=== PATIENT | female | born 1950 | race Caucasian/White ===

== ENCOUNTER 2018-11-07 10:48 | Outpatient (CLI) | payer OTHER | END 2018-11-07 10:58 | disposition home or self-care (01) | LOC: MAMO-SONO 10:48 | DX: Z12.31 Encounter for screening mammogram for malignant neoplasm of breast (principal); Z87.898 Personal history of other specified conditions; N64.89 Other specified disorders of breast ==

== ENCOUNTER 2019-05-05 08:46 | Outpatient (CLI) | payer OTHER | END 2019-05-05 08:52 | disposition home or self-care (01) | LOC: RAD 08:46 | DX: M54.2 Cervicalgia (principal) ==

== ENCOUNTER 2020-10-11 10:39 | Outpatient (CLI) | payer OTHER | END 2020-10-11 10:46 | disposition home or self-care (01) | LOC: MAMO-SONO 10:39 | PROVIDERS: ATTEND Internal Medicine | DX: Z12.31 Encounter for screening mammogram for malignant neoplasm of breast (principal); N64.89 Other specified disorders of breast; M54.5 Low back pain; I10 Essential (primary) hypertension; Z01.810 Encounter for preprocedural cardiovascular examination; E03.8 Other specified hypothyroidism; I83.813 Varicose veins of bilateral lower extremities with pain ==

== ENCOUNTER 2020-10-26 13:30 | Outpatient (CLI) | payer OTHER | END 2020-10-26 13:43 | disposition home or self-care (01) | LOC: NUCLEAR 13:30 | PROVIDERS: ATTEND Internal Medicine | DX: M81.0 Age-related osteoporosis without current pathological fracture (principal); I83.813 Varicose veins of bilateral lower extremities with pain; E03.8 Other specified hypothyroidism; Z01.810 Encounter for preprocedural cardiovascular examination ==

== ENCOUNTER 2021-04-28 10:31 | Outpatient (CLI) | payer OTHER | END 2021-04-28 10:43 | disposition home or self-care (01) | LOC: RAD 10:31 | PROVIDERS: ATTEND Internal Medicine | DX: M16.11 Unilateral primary osteoarthritis, right hip (principal); I10 Essential (primary) hypertension; M54.5 Low back pain; E03.9 Hypothyroidism, unspecified; I83.813 Varicose veins of bilateral lower extremities with pain ==

== ENCOUNTER 2021-10-18 14:31 | Outpatient (CLI) | payer OTHER | END 2021-10-18 14:35 | disposition home or self-care (01) | LOC: MAMO-SONO 14:31 | PROVIDERS: ATTEND Internal Medicine | DX: N64.59 Other signs and symptoms in breast (principal); Z12.31 Encounter for screening mammogram for malignant neoplasm of breast; I10 Essential (primary) hypertension; M54.59 Other low back pain; E03.8 Other specified hypothyroidism; I83.813 Varicose veins of bilateral lower extremities with pain; I87.2 Venous insufficiency (chronic) (peripheral); H40.019 Open angle with borderline findings, low risk, unspecified eye; H40.10X1 Unspecified open-angle glaucoma, mild stage; Z12.11 Encounter for screening for malignant neoplasm of colon; Z01.01 Encounter for examination of eyes and vision with abnormal findings ==

== ENCOUNTER 2022-09-05 09:27 | Outpatient (CLI) | payer OTHER | END 2022-09-05 09:29 | disposition home or self-care (01) | LOC: NUCLEAR 09:27 | PROVIDERS: ATTEND Obstetrics & Gynecology | DX: M81.0 Age-related osteoporosis without current pathological fracture (principal) ==

== ENCOUNTER 2023-01-23 12:17 | Outpatient (CLI) | payer OTHER | END 2023-01-23 12:28 | disposition home or self-care (01) | LOC: MAMO-SONO 12:17 | PROVIDERS: ATTEND Internal Medicine | DX: Z13.820 Encounter for screening for osteoporosis (principal); I10 Essential (primary) hypertension; M54.59 Other low back pain; E03.9 Hypothyroidism, unspecified; H40.10X1 Unspecified open-angle glaucoma, mild stage; H40.019 Open angle with borderline findings, low risk, unspecified eye; I87.2 Venous insufficiency (chronic) (peripheral); H40.9 Unspecified glaucoma; I73.9 Peripheral vascular disease, unspecified; H40.2231 Chronic angle-closure glaucoma, bilateral, mild stage; H35.3131 Nonexudative age-related macular degeneration, bilateral, early dry stage; Z12.11 Encounter for screening for malignant neoplasm of colon ==

== ENCOUNTER 2023-06-21 07:37 | Emergency (ER) | payer OTHER ==
[~2023-06-21] VITALS: Ht 167.6 cm; Wt 72.6 kg
[2023-06-21] MEDS ORDERED: SYNTHROID100 MCG PO (07:49)
[2023-06-21] MEDS ORDERED: CLOTRIMAZOLE-BE15 G1 TOP (09:02)
== END 2023-06-21 09:29 | disposition home or self-care (01) ==
LOC: ER 07:37
DX: R21 Rash and other nonspecific skin eruption (principal); E03.8 Other specified hypothyroidism

== ENCOUNTER 2024-06-30 06:46 | Emergency (ER) | payer OTHER ==
[~2024-06-30] VITALS: Ht 177.8 cm; Wt 72.6 kg
[~2024-06-30 06:46] MED LIST: CLOTRIMAZOLE-BE15 G1 TOP; SYNTHROID100 MCG PO
[2024-06-30] MEDS ORDERED: ADULT LOW DOSE81 M1 PO (07:31)
[2024-06-30] MEDS ORDERED: KETOROLAC TROMETHAMINE 60 MG VIAL IM ONE ×2 (08:40→08:45)
[2024-06-30] MEDS ORDERED: CEFTRIAXONE SODIUM 2,000 MG VIAL ONE (08:41)
[2024-06-30] MEDS ORDERED: LIDOCAINE HCL 1% 10ML VIAL ONE ×2 (08:41→09:23)
[2024-06-30] MEDS ORDERED: CEFTRIAXONE SODIUM 2,000 MG VIAL IM ONE (08:45)
[2024-06-30] MEDS ORDERED: LIDOCAINE HCL 1% 10ML VIAL PERCUT ONE (08:45)
[2024-06-30] MEDS ORDERED: CEPHALEXIN750 MG PO (09:56)
[2024-06-30] MEDS ORDERED: PEPCID AC20 MG PO (09:56)
== END 2024-06-30 09:58 | disposition home or self-care (01) ==
LOC: ER 06:48
DX: S81.811A Laceration without foreign body, right lower leg, initial encounter (principal); W45.8XXA Other foreign body or object entering through skin, initial encounter; Y93.89 Activity, other specified; Y92.89 Other specified places as the place of occurrence of the external cause; Y99.9 Unspecified external cause status; E03.9 Hypothyroidism, unspecified
CPT/HCPCS: 12004; 73630; 96372; 99283; J0696; J1885

== ENCOUNTER 2024-07-15 10:02 | Emergency (ER) | payer OTHER ==
[~2024-07-15] VITALS: Ht 165.1 cm; Wt 71.7 kg
[~2024-07-15 10:02] MED LIST changes: +ADULT LOW DOSE81 M1 PO; +CEPHALEXIN750 MG PO; +PEPCID AC20 MG PO
== END 2024-07-15 11:07 | disposition home or self-care (01) ==
LOC: ER 10:04
DX: Z48.02 Encounter for removal of sutures (principal); S91.109A Unspecified open wound of unspecified toe(s) without damage to nail, initial encounter

== ENCOUNTER 2024-07-29 08:49 | Emergency (ER) | payer OTHER ==
[~2024-07-29] VITALS: Ht 175.3 cm; Wt 72.1 kg
[2024-07-29] MEDS ORDERED: KETOROLAC TROMETHAMINE 60 MG VIAL IM STA (09:33)
[2024-07-29] MEDS ORDERED: ORPHENADRINE CITRATE 30 MG/ML AMPUL IM STA (09:34)
[2024-07-29] MEDS ORDERED: KETOROLAC TROMETHAMINE 60 MG VIAL IM ONE (09:40)
[2024-07-29] MEDS ORDERED: ORPHENADRINE CITRATE 30 MG/ML AMPUL ONE (09:40)
== END 2024-07-29 10:57 | disposition home or self-care (01) ==
LOC: ER 08:49
DX: M51.26 Other intervertebral disc displacement, lumbar region (principal); E03.8 Other specified hypothyroidism
CPT/HCPCS: 96372; 99282; J1885; J2360

== ENCOUNTER 2025-01-13 11:55 | Outpatient (CLI) | payer OTHER | END 2025-01-13 11:58 | disposition home or self-care (01) | LOC: SONOGRAMA 11:55 | PROVIDERS: ATTEND Internal Medicine | DX: E03.9 Hypothyroidism, unspecified (principal); I10 Essential (primary) hypertension; I87.2 Venous insufficiency (chronic) (peripheral); M79.671 Pain in right foot; Z12.11 Encounter for screening for malignant neoplasm of colon; Z13.820 Encounter for screening for osteoporosis ==

== ENCOUNTER 2025-02-02 14:16 | Outpatient (CLI) | payer OTHER | END 2025-02-02 14:19 | disposition home or self-care (01) | LOC: SONOGRAMA 14:16 | PROVIDERS: ATTEND Pathology Anatomic Pathology | DX: D34 Benign neoplasm of thyroid gland (principal); E06.3 Autoimmune thyroiditis; E04.1 Nontoxic single thyroid nodule ==

== ENCOUNTER 2025-02-05 12:45 | Outpatient (CLI) | payer OTHER | END 2025-02-05 12:46 | disposition home or self-care (01) | LOC: NUCLEAR 12:45 | PROVIDERS: ATTEND Internal Medicine | DX: Z13.820 Encounter for screening for osteoporosis (principal); M81.0 Age-related osteoporosis without current pathological fracture ==